=== PATIENT | male | born 1960 | race Caucasian/White ===

== ENCOUNTER → 2016-06-25 | Outpatient (CLI) | payer OTHER ==
[~2016-06-25] MED LIST: ACET-749 PO; LATA0.5S OP; MXZC25 PO; TIMO0.2528 OPB; TRVOPS OPB; [UNRECOGNIZED DRUG - CODE] PO
== END | disposition home or self-care (01) ==
LOC: C.LABPVFM 12:18
PROVIDERS: ATTEND Family Medicine
DX: R31.9 Hematuria, unspecified (principal)

== ENCOUNTER → 2016-06-25 | Outpatient (CLI) | payer OTHER | END | disposition home or self-care (01) | LOC: C.PATHSPEC 16:17 | PROVIDERS: ATTEND Family Medicine | DX: R31.9 Hematuria, unspecified (principal) ==

== ENCOUNTER → 2016-07-23 | Outpatient (CLI) | payer OTHER ==
[2016-07-23 17:39] LABS: BASO % 1.1 %; BASO ABS # 0.08 K/uL (0-0.2); COMPLETE YES; EOS % 2.8 %; HEMATOCRIT 44.2 % (42-52); IG% 0.1 %; LYMPH % 18.4 %; LYMPH ABS # 1.33 K/uL (1.2-3.4); MEAN CELL VOLUME 88.6 fL (80-100); MEAN CORPUSCULAR HEMOGLOBIN 30.5 pg (25-34); MEAN CORPUSCULAR HGB CONC 34.4 g/dl (32-36); MEAN PLATELET VOLUME 10.8 fL (7.4-10.4); NEUT % 67.6 %; PLATELET COUNT 267 K/uL (130-400); RED BLOOD COUNT 4.99 M/uL (4.7-6.1); WHITE BLOOD COUNT 7.22 K/uL (4.8-10.8)
[2016-07-23 18:06] LABS: BLOOD UREA NITROGEN 14 mg/dl (7-18); BUN/CREATININE RATIO 13.2 (10-20); CALCIUM 8.5 mg/dl (8.5-10.1); CARBON DIOXIDE 31 mmol/L (21-32); CHLORIDE 104 mmol/L (98-107); GLUCOSE 97 mg/dl (70-99); POTASSIUM 4.1 mmol/L (3.5-5.1); SODIUM 140 mmol/L (136-145)
== END | disposition home or self-care (01) ==
LOC: C.LABPVFM 14:12
PROVIDERS: ATTEND Nurse Practitioner Adult Health
DX: R31.0 Gross hematuria (principal)

== ENCOUNTER → 2016-07-30 | Outpatient (CLI) | payer OTHER ==
[~2016-07-30] MED LIST changes: +OPTIRAY 320 IV PRN
--- NOTE | 2016-07-30 16:38 | DIAGNOSTIC IMAGING REPORT ---
CT UROGRAM CLINICAL HISTORY: Gross hematuria. COMPARISON STUDY: No priors. TECHNIQUE: Before and following the IV administration of 91 cc of Optiray 320, CT urogram of the abdomen and pelvis is performed from the lung bases to the proximal femora. Images are reviewed in the axial, sagittal, and coronal planes. IV contrast was administered without complication. CT DOSE: 863.61 mGy.cm FINDINGS: Lung bases: The heart is normal in size and without pericardial effusion. Small fat-containing Bochdalek hernias are present at both lung bases. The lung bases are otherwise clear. There is a tiny hiatal hernia. Liver: The contrast-enhanced liver is normal in size, contour, and attenuation. A 9 mm cyst is present in the right lobe of the liver. There is no intrahepatic biliary ductal dilatation. The hepatic veins and portal veins are patent. Gallbladder: Unremarkable. Spleen: Normal in size and attenuation. Pancreas: Unremarkable. Adrenal glands: Unremarkable. Kidneys and ureters: The contrast enhanced kidneys are normal in size and without hydronephrosis. There is a 12 mm calculus present within the right renal pelvis. At least 2 additional punctate nonobstructing calculi are present in the right kidney. No left renal calculi are identified. No ureteral stone is seen. The kidneys enhance and excrete symmetrically. There is no enhancing renal cortical mass lesion identified. There is no evidence of urothelial lesion within the renal pelvis bilaterally or along the course of either ureter. There is urothelial thickening with surrounding inflammatory stranding seen involving the right renal pelvis in the right proximal ureter. Abdominal vasculature: The abdominal aorta is normal in course and caliber. Bowel: The small bowel and colon are normal in course and caliber. Mild colonic fecal retention is observed. The appendix is well-visualized and normal. Peritoneum: There is no intraperitoneal free air or abdominal ascites. There is a small fat-containing umbilical hernia. Lymphadenopathy: None. Pelvic viscera: The prostate gland is mildly enlarged and heterogeneous, measuring 5.7 cm in transverse diameter. The bladder is normal as visualized. Skeletal structures: There is mild lumbosacral spondylosis. No lytic or blastic bony lesions are seen. IMPRESSION: 1. The kidneys are normal in size and without hydronephrosis. 2. There is a 12 mm calculus present within the right renal pelvis. Additional punctate nonobstructing right renal calculi are noted. 3. There is significant urothelial thickening identified involving the right renal pelvis and the right proximal ureter with surrounding inflammatory stranding. This could represent infection of the collecting system or possibly changes related to intermittent obstruction from the large calculus within the right renal pelvis. 4. There is no enhancing renal cortical mass. No evidence of urothelial lesion is seen within the renal pelvis bilaterally or along the course of the ureters. 5. The bladder is normal as visualized. 6. Mild prostatomegaly. 7. Additional findings as detailed above. Electronically signed by: Robert Damon M.D. 07/30/2016 4:37 PM Dictated Date/Time: 07/30/2016 4:28 PM
== END | disposition home or self-care (01) ==
LOC: C.CTS 15:57
PROVIDERS: ATTEND Nurse Practitioner Adult Health
DX: R31.0 Gross hematuria (principal); N20.0 Calculus of kidney

== ENCOUNTER → 2016-08-01 | Outpatient (CLI) | payer OTHER ==
[~2016-08-01] MED LIST changes: -OPTIRAY 320 IV PRN; -TRVOPS OPB
--- NOTE | 2016-08-01 15:47 | DIAGNOSTIC IMAGING REPORT ---
KUB MEDICAL HISTORY: Nephrolithiasis. FINDINGS: 2 AP supine abdominal radiographs are correlated with abdominal CT dated 07/30/2016. Again seen is a 13 mm calculus projecting over the right renal pelvis. No additional renal calculi are clearly visualized. Pelvic phleboliths are observed. There is a nonobstructed abdominal bowel gas pattern noting moderate colonic fecal retention. The bony structures appear intact. The lung bases are clear as imaged. IMPRESSION: Unchanged appearance of a 13 mm calculus projecting over the right renal pelvis as compared to the 07/30/2016 CT scan. Electronically signed by: Robert Damon M.D. 08/01/2016 3:46 PM Dictated Date/Time: 08/01/2016 3:45 PM
== END | disposition home or self-care (01) ==
LOC: C.RAD 15:23
PROVIDERS: ATTEND Urology
DX: N20.0 Calculus of kidney (principal)

== ENCOUNTER → 2016-08-02 | Day surgery (SDC) | payer OTHER ==
[2016-07-31 13:56] VITALS: Ht 185.4 cm; Wt 90.9 kg
--- NOTE | 2016-07-31 14:40 | DIAGNOSTIC IMAGING REPORT ---
CHEST 2 VIEWS ROUTINE CLINICAL HISTORY: N20.0 Kidney stone on right [id number] COMPARISON STUDY: No previous studies for comparison. FINDINGS: The cardiac and mediastinal contours are normal. There is no evidence of focal pulmonary consolidation. There is no evidence of failure. No pleural effusions are visualized.[ IMPRESSION: No active disease in the chest. Electronically signed by: Huang Cutler M.D. 07/31/2016 2:38 PM Dictated Date/Time: 07/31/2016 2:38 PM
[~2016-08-02] VITALS: Ht 185.4 cm; Wt 90.9 kg
[~2016-08-02] MED LIST changes: +ACETAMINOPHEN 325 MG TAB PO PRN; +ATROPINE SULFATE 0.1 MG/ML 5ML SYR IV PRN; +CIPROFLOXACIN 400MG / D5W IV SCH; +EpHEDrine SULFATE INJ 50 MG/ML AMP IV PRN; +FENTANYL CITRATE INJ 50 MCG/1 ML 2 ML VIAL IV PRN; +FENTANYL CITRATE INJ 50 MCG/1 ML 2 ML VIAL ONE; +HYDROCODONE/ACETAMOPHEN 5/325MG TAB PO PRN; +KETOROLAC TROMETHAMINE 30 MG/ML VIAL IV. PRN; +LIDOCAINE HCL 2% 2 ML VIAL (20MG/ML) ONE; +MIDAZOLAM HCL 1 MG/ML 2ML VIAL ONE; +ONDANSETRON INJ 2 MG/ML 2 ML VIAL IV PRN; +ONDANSETRON INJ 2 MG/ML 2 ML VIAL ONE; +PROPOFOL IV EMULSION 10 MG/ML 20 ML VIAL IV ONE; +SODIUM CHLORIDE 0.9% 1000ML 1,000 ML IV SCH; +TAMSULOSIN HCL 0.4 MG CAP PO SCH
--- NOTE | 2016-08-02 06:53 | History & Physical Bridge Note ---
H&P Re-Evaluation Bridge Note: I have examined the patient, reviewed the History & Physical and in the interval since the performance of the History & Physical I have noted the following changes of clinical significance: No changes noted
--- NOTE | 2016-08-02 07:35 | Discharge Instructions-SurgCtr ---
Discharge Instructions Date of Service August 02, 2016. Visit Reason for Visit: Stones, Hematuria;Kidney Stone On Rt Side N20.0 Discharge Discharge Diagnosis / Problem: stones; hematuria Discharge Goals Goal(s): Decrease discomfort, Improve function, Increase independence, Improve disease control, Prevent Disease Progression Activity Recommendations Activity Limitations: resume your previous activity Lifting Limitations: none Exercise/Sports Limitations: none May Resume Sexual Activity: when tolerated Shower/Bathe: no limitations Driving or Machine Use: resume 1 day after discharge Anesthesia . Post Anesthesia Instructions: If you have had General Anesthesia or IV Sedation: * Do not drive today. * Resume driving when surgeon permits. * Do not make important decisions or sign legal documents today. * Call surgeon for: 1. Temperature elevations greater than 101 degrees F. 2. Uncontrollable pain. 3. Excessive bleeding. 4. Persistent nausea and vomiting. 5. Medication intolerance (nausea, vomiting or rash). * For nausea and vomiting use only clear liquids such as: tea, soda, bouillon until nausea subsides, then gradually increase diet as tolerated. * If you have any concerns or questions, call your surgeon's office. If physician is unavailable and it is an emergency, call 911 or go to the nearest emergency room. . Diet Recommendations Home Diet: no limitations Pending Studies Studies pending at discharge: no Medical Emergencies . Who to Call and When: Medical Emergencies: If at any time you feel your situation is an emergency, please call 911 immediately. . Non-Emergent Contact Non-Emergency issues call your: Urologist Call Non-Emergent contact if: you have a fever, temperature is above 101.5, your pain is not controlled, your pain is worsening . . "Provider Documentation" section prepared by Hong Kumar. . [place] Drug Monitoring Program Search Results: patient reviewed within database, no issues identified
--- NOTE | 2016-08-02 07:42 | [facility] Post Operative Brief Note ---
Immediate Operative Summary Operative Date August 02, 2016. Pre-Operative Diagnosis Hematuria and Right Renal Stone Post-Operative Diagnosis same Procedure(s) Performed Cystoscopy, Flexible; Right Extracorporeal Shock Wave Lithotripsy Surgeon Dr Denver Holt Cpo Surgeon(s) none Estimated Blood Loss 0 Findings Cystoscopy: No tumors, relatively small prostate. Mild trabeculation at most. Stone: appeared to fragment nicely with ESWL Specimens none Anesthesia gen Complication(s) None Disposition Recovery Room / PACU
--- NOTE | 2016-08-02 08:33 | Anesthesia Progress Nt - [facility] ---
Anesthesia Post Op Note Date & Time August 02, 2016 at 08:33 Vital Signs Pain Intensity: 0 Vital Signs Past 12 Hours Date Time Temp Pulse Resp B/P Pulse Ox O2 Delivery O2 Flow Rate FiO2 08/02/16 08:22 61 14 98 08/02/16 08:22 61 14 08/02/16 08:21 58 10 99 08/02/16 08:21 60 10 08/02/16 08:20 36.6 98 Room Air 08/02/16 08:20 133/89 08/02/16 08:16 63 13 08/02/16 08:16 63 13 97 08/02/16 08:15 140/97 08/02/16 08:11 66 14 08/02/16 08:11 67 14 97 08/02/16 08:10 130/90 08/02/16 08:08 63 16 08/02/16 08:08 63 16 99 08/02/16 08:05 132/85 08/02/16 08:03 64 12 08/02/16 08:03 63 12 100 08/02/16 08:02 62 11 08/02/16 08:02 61 11 100 08/02/16 08:00 121/93 08/02/16 07:57 36.5 65 16 145/92 99 Mask 7 08/02/16 07:57 64 14 145/92 100 08/02/16 07:57 64 14 08/02/16 06:30 36.9 69 16 130/79 96 Room Air Notes Mental Status: alert / awake / arousable, participated in evaluation Pt Amnestic to Procedure: Yes Nausea / Vomiting: adequately controlled Pain: adequately controlled Airway Patency, RR, SpO2: stable & adequate BP & HR: stable & adequate Hydration State: stable & adequate Anesthetic Complications: no major complications apparent
[2016-08-02 08:50] VITALS: BP 131/86; PULSE 54; TEMP 36.1; O2SAT 99
--- NOTE | 2016-08-02 09:43 | OPERATIVE REPORT ---
DATE OF OPERATION: 08/02/2016 PREOPERATIVE DIAGNOSES: 1. Hematuria. 2. Right renal calculus. POSTOPERATIVE DIAGNOSES: Same. PROCEDURE PERFORMED: 1. Cystoscopy. 2. Right renal extracorporeal shockwave lithotripsy. ANESTHESIA: General. ESTIMATED BLOOD LOSS: Zero. URINE OUTPUT: Not recorded. SPECIMENS: None. DRAINS: None. COMPLICATIONS: None. DESCRIPTION OF THE PROCEDURE: Hugo Burch was identified in the preoperative holding area. Appropriate informed consents were reviewed and completed, and the patient was transported to the operating suite. Upon arrival, he received appropriate preoperative antibiotics in the form of ciprofloxacin. Adequate general anesthesia was achieved, and he was placed in supine position. I sterilely prepped and draped his penis prior to insertion of a flexible cystoscope. Inspection of the urethra revealed no evidence of stricture disease. He has a moderate size prostate with mild lateral lobe hypertrophy and no evidence of any intravesical component. Full inspection of the bladder was carried out revealing a mildly utmost trabeculated bladder without any bladder tumors or other abnormalities. There were no stones visualized within the bladder itself. Efflux in both ureters was visualized and was clear. At this time, I drained the bladder via the cystoscope and withdrew the cystoscope. Second portion of the procedure was then started after identifying his stone under fluoroscopy. We targeted the stone with the lithotripter and commenced the procedure, delivering a total of 2500 shocks to the stone. Further details can be found on the [place] Information sheet. At the conclusion of the case, he was extubated and taken to the PACU in stable condition. I attest to the content of the Intraoperative Record and any orders documented therein. Any exceptions are noted below. ERICA
== END | disposition home or self-care (01) ==
LOC: X.SURG 06:21
PROVIDERS: ATTEND Urology
DX: N20.0 Calculus of kidney (principal); N40.0 Benign prostatic hyperplasia without lower urinary tract symptoms; I10 Essential (primary) hypertension; M19.90 Unspecified osteoarthritis, unspecified site; Z87.891 Personal history of nicotine dependence; Z86.010 Personal history of colon polyps; Z83.42 Family history of familial hypercholesterolemia

== ENCOUNTER → 2016-08-16 | Outpatient (CLI) | payer OTHER ==
[~2016-08-16] MED LIST changes: -ACETAMINOPHEN 325 MG TAB PO PRN; -ATROPINE SULFATE 0.1 MG/ML 5ML SYR IV PRN; -CIPROFLOXACIN 400MG / D5W IV SCH; -EpHEDrine SULFATE INJ 50 MG/ML AMP IV PRN; -FENTANYL CITRATE INJ 50 MCG/1 ML 2 ML VIAL IV PRN; -FENTANYL CITRATE INJ 50 MCG/1 ML 2 ML VIAL ONE; -HYDROCODONE/ACETAMOPHEN 5/325MG TAB PO PRN; -KETOROLAC TROMETHAMINE 30 MG/ML VIAL IV. PRN; -LIDOCAINE HCL 2% 2 ML VIAL (20MG/ML) ONE; -MIDAZOLAM HCL 1 MG/ML 2ML VIAL ONE; -ONDANSETRON INJ 2 MG/ML 2 ML VIAL IV PRN; -ONDANSETRON INJ 2 MG/ML 2 ML VIAL ONE; -PROPOFOL IV EMULSION 10 MG/ML 20 ML VIAL IV ONE; -SODIUM CHLORIDE 0.9% 1000ML 1,000 ML IV SCH; -TAMSULOSIN HCL 0.4 MG CAP PO SCH
== END | disposition home or self-care (01) ==
LOC: C.LABSPEC 14:48
PROVIDERS: ATTEND Urology
DX: N20.0 Calculus of kidney (principal)

== ENCOUNTER → 2016-08-16 | Outpatient (CLI) | payer OTHER ==
--- NOTE | 2016-08-16 13:43 | DIAGNOSTIC IMAGING REPORT ---
KUB CLINICAL HISTORY: Right-sided kidney stone COMPARISON STUDY: 08/01/2016 FINDINGS: The renal shadows are partially obscured by overlying bowel gas and fecal material. There is no pathologic bowel dilatation. The previously identified right renal calculus is not visualized the current study. Pelvic basin calcifications remain stable and therefore likely represent phleboliths. IMPRESSION: 1. The previously identified right renal calculus is not visualized. Visualization of the kidneys is however limited due to overlying bowel gas and fecal material 2. No evidence of pathologic bowel dilatation Electronically signed by: Huang Cutler M.D. 08/16/2016 1:42 PM Dictated Date/Time: 08/16/2016 1:40 PM
== END | disposition home or self-care (01) ==
LOC: C.RAD 13:14
PROVIDERS: ATTEND Urology
DX: N20.0 Calculus of kidney (principal)

== ENCOUNTER → 2017-02-11 | Outpatient (CLI) | payer OTHER ==
[~2017-02-11] MED LIST changes: -ACET-749 PO
[2017-02-11 17:33] LABS: BLOOD UREA NITROGEN 19 mg/dl (7-18); BUN/CREATININE RATIO 17.4 (10-20); CREATININE 1.09 mg/dl (0.60-1.40)
== END | disposition home or self-care (01) ==
LOC: C.LABPVFM 12:00
PROVIDERS: ATTEND Urology
DX: N20.0 Calculus of kidney (principal)

== ENCOUNTER → 2017-02-19 | Outpatient (CLI) | payer OTHER ==
[~2017-02-19] MED LIST changes: +OPTIRAY 300 IV PRN
--- NOTE | 2017-02-19 15:57 | DIAGNOSTIC IMAGING REPORT ---
IVP CLINICAL HISTORY: Hematuria. Nephrolithiasis. COMPARISON STUDY: CT of the abdomen and pelvis July 30, 2016 and KUB August 16, 2016. 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 Intravenous pyelogram was then performed following intravenous injection of 100 cc of Optiray 320 IV. FINDINGS: No renal, ureteral or bladder calculi are identified by radiography. There is no hydronephrosis or hydroureter. No upper tract filling defects are identified on this examination. Both nephrograms are symmetric. Bladder is suboptimally assessed utilizing this technique but no abnormality is identified. There is no significant post void residual. IMPRESSION: 1. Unremarkable IVP. 2. No urinary calculi identified. No hydronephrosis or hydroureter. Electronically signed by: Soto Sparks M.D. 02/19/2017 3:56 PM Dictated Date/Time: 02/19/2017 3:47 PM
== END | disposition home or self-care (01) ==
LOC: C.RAD 14:12
PROVIDERS: ATTEND Urology
DX: N20.0 Calculus of kidney (principal); R31.9 Hematuria, unspecified

== ENCOUNTER → 2017-03-14 | Outpatient (CLI) | payer OTHER ==
[~2017-03-14] MED LIST changes: -OPTIRAY 300 IV PRN
[2017-03-14 13:16] LABS: ALT/SGPT 28 U/L (12-78); AST/SGOT 16 U/L (15-37); BLOOD UREA NITROGEN 14 mg/dl (7-18); BUN/CREATININE RATIO 12.8 (10-20); CALCIUM 8.4 mg/dl (8.5-10.1); CARBON DIOXIDE 30 mmol/L (21-32); CHLORIDE 101 mmol/L (98-107); CHOLESTEROL 202 mg/dl (0-200); CREATININE 1.09 mg/dl (0.60-1.40); GLUCOSE 95 mg/dl (70-99); SODIUM 134 mmol/L (136-145)
[2017-03-14 13:19] LABS: ALB/GLOB RATIO 1.1 (0.9-2); ALKALINE PHOSPHATASE 50 U/L (45-117); CHOLESTEROL/HDL RATIO 3.5; HDL CHOLESTEROL 58 mg/dl; LDL CHOLESTEROL CALCULATED 127 mg/dl; TRIGLYCERIDES 86 mg/dl (0-150); VERY LOW DENSITY LIPOPROT CALC 17 mg/dl
== END | disposition home or self-care (01) ==
LOC: C.LABPVFM 09:02
PROVIDERS: ATTEND Family Medicine
DX: I10 Essential (primary) hypertension (principal); N20.0 Calculus of kidney; E78.5 Hyperlipidemia, unspecified

== ENCOUNTER → 2017-08-15 | Outpatient (CLI) | payer OTHER ==
[~2017-08-15] VITALS: Ht 185.4 cm; Wt 94.8 kg
[2017-08-15 13:09] VITALS: BP 141/85; PULSE 75; Ht 185.4 cm; Wt 94.8 kg
== END | disposition home or self-care (01) ==
LOC: C.NEUR 12:55
PROVIDERS: ATTEND Internal Medicine Pulmonary Disease
DX: G47.30 Sleep apnea, unspecified (principal); R53.83 Other fatigue